=== PATIENT | female | born 1970 | race Hispanic/Latino ===

== ENCOUNTER 2023-03-03 04:50 | Observation (INO) | payer SELFPAY ==
[2023-03-03] MEDS ORDERED: Ketorolac Tromethamine 30 MG/ML VIAL ONE (05:15)
[2023-03-03] MEDS ORDERED: Acetaminophen 500 MG TAB ONE (05:15)
[2023-03-03 05:16] LABS: #Eosinphils 0.5 thou/uL (0.0-0.7); #Monocytes 0.7 thou/uL (0.11-0.59); #Neutrophils 3.6 thou/uL (1.40-6.50); %Basophils 0.5 % (0.0-1.0); %Eosinophils 6.5 % (0.0-10.0); %Lymphocytes 38.1 % (21.0-51.0); %Neutrophils 45.6 % (42.0-75.0); Hemoglobin 13.6 g/dL (12.0-16.0); Mean Corpuscular HGB CONC 34.4 g/dL (32.0-36.0); Mean Platelet Volume 10.3 fL (7.4-10.4); Platelet Count 248 10x3/uL (130-400); RBC Distribution Width 12.6 % (11.5-14.5); Red Blood Cell (RBC) Count 4.39 mill/uL (4.20-5.40)
[2023-03-03 05:26] LABS: Bacteria/HPF None Seen HPF (None Seen); Bilirubin Negative (Negative); Blood, Urine Negative (Negative); CAUTI Indications for Culture Pelvic or flank pain; Clarity Clear (Clear); Glucose, Urine (Dipstick) Normal (Negative); Ketone, Urine Negative (Negative); Leukocyte Negative Leu/uL (Negative); Nitrite Negative (Negative); Protein, Urine (Dipstick) Negative (Neg-Trace); RBC/HPF None Seen HPF (0-3); Specific Gravity, Urine 1.018 (1.002-1.036); Urobilinogen Normal mg/dL (Less than 2); WBC/HPF 0-3 HPF (0-3)
[2023-03-03 05:29] LABS: Pregnancy Test - Urine (BHCG) Negative (Negative); Pregu Control Background? CLEAR/WHITE (CLR/WHITE); Pregu Control Bar Appear? YES (CONTROL BAR); Specific Gravity 1.018 (1.002-1.036)
[2023-03-03 05:30] LABS: Urine Culture Reflex No No
[2023-03-03 05:39] LABS: ALT (SGPT) 41 U/L (8-55); AST (SGOT) 23 U/L (5-34); Alkaline Phosphatase 95 U/L (40-110); Anion Gap 10 mmol/L (10-20); BUN (Urea Nitrogen) 12 mg/dL (9.8-20.1); Bilirubin, Total 0.2 mg/dL (0.2-1.2); Calc. Creatinine Clearance 0 mL/min (70-130); Calcium 9.6 mg/dL (7.8-10.44); Carbon Dioxide 29 mmol/L (22-29); Chloride 106 mmol/L (98-107); Estimated GFR 105; Globulin 2.4 g/dL (2.4-3.5); Glucose 107 mg/dL (70-105); Potassium 3.8 mmol/L (3.5-5.1); Protein, Total 6.4 g/dL (6.0-8.3); Sodium 141 mmol/L (136-145)
[2023-03-03 08:04] LABS: Troponin I Less than 0.010 ng/mL (< 0.028)
[2023-03-03] MEDS ORDERED: Morphine 2 MG/ML VIAL SLOW IVP PRN (08:16)
[2023-03-03] MEDS ORDERED: Morphine 4 MG/ML VIAL ONE ×2 (08:28→11:19)
[2023-03-03] MEDS ORDERED: Acetaminophen 325 MG TAB ONE (10:37)
[2023-03-03] MEDS ORDERED: HumaLOG 300 UNITS/3 ML VIAL SC PRN (10:47)
[2023-03-03] MEDS ORDERED: Dextrose 50% Abboject 50 ML SYRINGE SLOW IVP PRN (10:47)
[2023-03-03] MEDS ORDERED: Dextrose 5% in Water 1,000 ML IV PRN (10:47)
[2023-03-03] MEDS ORDERED: Glucagon 1 MG/ML KIT IM PRN (10:47)
[2023-03-03] MEDS ORDERED: Aspirin 325 mg Enteric Coated Tablet PO SCH (11:15)
[2023-03-03 12:02] LABS: Troponin I Less than 0.010 ng/mL (< 0.028)
[2023-03-03 15:01] VITALS: BMI 36.3
[2023-03-03 15:03] LABS: Troponin I Less than 0.010 ng/mL (< 0.028)
[2023-03-03] MEDS: Morphine 4 MG/ML VIAL SLOW IVP PRN ×3 (15:29→23:48)
[2023-03-03] MEDS ORDERED: Nicotine 14 MG PATCH TD SCH (18:00)
[2023-03-03] MEDS: Nitroglycerin 0.4 MG TAB (25 Tab Bottle) SL PRN ×3 (18:24→23:44)
[2023-03-03] MEDS ORDERED: Meclizine HCl 25 MG TAB PO PRN (18:28)
[2023-03-03] MEDS ORDERED: Butalbital 50 MG/Aspirin 325 MG/Caffeine 40 MG CAPSULE PO PRN (18:29)
[2023-03-03] MEDS: hydrOXYzine Pamoate 25 mg Capsule PO PRN (19:24)
[2023-03-03] MEDS: Ondansetron PF 4 MG/2 ML Vial IVP PRN (20:29)
[2023-03-03] MEDS: Methocarbamol 500 MG TAB PO PRN (22:22)
[2023-03-04] MEDS ORDERED: Metoclopramide HCl 10 MG/2 ML VIAL IVP SCH ×2 (00:30→23:45)
[2023-03-04] MEDS: Methocarbamol 500 MG TAB PO PRN (05:22)
[2023-03-04] MEDS: Ondansetron PF 4 MG/2 ML Vial IVP PRN ×2 (05:26→11:10)
[2023-03-04] MEDS: Morphine 4 MG/ML VIAL SLOW IVP PRN (08:42)
[2023-03-04 08:58] VITALS: TEMP 97.8
[2023-03-04] MEDS ORDERED: Lisinopril 5 MG TAB PO SCH (09:00)
[2023-03-04] MEDS ORDERED: Furosemide 20 MG TAB PO SCH (09:00)
[2023-03-04] MEDS ORDERED: Loratadine 10 MG TAB PO SCH (09:00)
[2023-03-04] MEDS ORDERED: Aspirin 325 mg Enteric Coated Tablet PO SCH (09:00)
[2023-03-04] MEDS ORDERED: Isosorbide Dinitrate 20 MG TAB PO SCH (09:00)
[2023-03-04] MEDS: hydrOXYzine Pamoate 25 mg Capsule PO PRN (11:15)
[2023-03-04 12:03] VITALS: BP 131/73
[2023-03-04] MEDS ORDERED: Atorvastatin Calcium 20 MG TAB PO SCH (21:00)
== END 2023-03-04 14:10 | disposition home or self-care (01) ==
LOC: ERS 04:50 → ERHOLD 08:24 → 2SW 14:05
PROVIDERS: ADMIT Internal Medicine; ATTEND Hospitalist
DX: R07.89 Other chest pain (principal); I10 Essential (primary) hypertension; E11.9 Type 2 diabetes mellitus without complications; E78.5 Hyperlipidemia, unspecified; F41.9 Anxiety disorder, unspecified; M79.7 Fibromyalgia; F17.210 Nicotine dependence, cigarettes, uncomplicated; Z79.84 Long term (current) use of oral hypoglycemic drugs; Z79.899 Other long term (current) drug therapy; Z88.8 Allergy status to other drugs, medicaments and biological substances; Z88.6 Allergy status to analgesic agent; Z90.49 Acquired absence of other specified parts of digestive tract
CPT/HCPCS: 36415; 36416; 71045; 80053; 81001; 81025; 84484; 85025; 93005; 94760; 96372; 96374; 96376; J1885; J2270; J2405; J2765; Q0177